=== PATIENT | female | born 1985 | race Caucasian/White ===

== ENCOUNTER → 2022-04-12 13:52 | Outpatient (CLI) | payer OTHER, SELFPAY ==
[2022-04-12 15:21] LABS: Triiodothryronine (T3) Uptake 29 % (23.5-40.5)
[2022-04-12 15:22] LABS: Free Thyroxine Index 2.6 ug/dL (5.93-13.13); T4 (Thyroxine) 8.9 ug/dl (5.53-11.0)
[2022-04-12 15:23] LABS: HCG,Quantitative 5504 mIU/ml (0-5.42)
[2022-04-12 15:36] LABS: Thyroid Stimulating Hormone 2.23 uIU/mL (0.465-4.68)
== END ==
PROVIDERS: Visit Provider Nurse Practitioner Obstetrics & Gynecology
DX: Z34.90 Encounter for supervision of normal pregnancy, unspecified, unspecified trimester (principal); E03.9 Hypothyroidism, unspecified
CPT/HCPCS: 36415; 84436; 84443; 84479; 84702

== ENCOUNTER → 2022-04-26 16:02 | Outpatient (CLI) | payer OTHER, SELFPAY ==
[2022-04-26 16:57] LABS: Basophils % 0.6 % (0.1-2.0); Eosinophils % 0.6 % (0.1-12.0); Hematocrit 40.7 % (37.0-47.0); Hemoglobin 13.6 g/dL (12.2-16.2); Lymphocytes # 1.6 K/mm3 (0.7-4.5); Lymphocytes % 21.8 % (10-50); Mean Corpuscular HGB Conc 33.5 g/dL (31.8-35.4); Mean Corpuscular Volume 83.4 fl (81-99); Monocytes # 0.3 K/mm3 (0.1-1.0); Monocytes % 4.6 % (1.7-9.3); Neutrophils # 5.3 K/mm3 (1.8-7.8); Neutrophils % 72.4 % (37.0-80.0); Platelet Count 357 K/mm3 (142-424); Red Blood Count 4.88 M/mm3 (4.20-5.40); Red Cell Distribution Width 14.5 % (11.5-17.5); White Blood Count 7.3 K/mm3 (4.8-10.8)
[2022-04-28 07:13] LABS: HIV Screen 4th Generation wRfx Non Reactive (Non Reactive); Hepatitis B Surface Antigen Negative (Negative); Hepatitis C Antibody <0.1 s/co ratio (0.0-0.9)
[2022-04-28 08:41] LABS: HSV 1 IgG, Type Spec <0.91 index (0.00-0.90); HSV 2 IgG, Type Spec <0.91 index (0.00-0.90); Rubella Antibodies, IgG 8.08 index (Immune >0.99)
[2022-04-28 09:27] LABS: Rapid Plasma Reagin Ab Titer Non Reactive (NonRea<1:1)
== END ==
PROVIDERS: PCP Internal Medicine; Visit Provider Nurse Practitioner Obstetrics & Gynecology
DX: Z34.90 Encounter for supervision of normal pregnancy, unspecified, unspecified trimester (principal)
CPT/HCPCS: 36415; 85025; 86592; 86695; 86703; 86762; 86790; 86850; 87340; 87380; G0432

== ENCOUNTER → 2022-05-03 16:02 | Outpatient (CLI) | payer OTHER, SELFPAY ==
--- NOTE | 2022-05-03 16:12 | US_ITS ---
PROCEDURE INFORMATION: Exam: US After First Trimester, Transabdominal Exam date and time: 05/03/2022 4:27 PM Age: 37 years old Clinical indication: Screening exam; Routine US, uterus; Additional info: For dates TECHNIQUE: Imaging protocol: Real-time transabdominal obstetrical ultrasound of the maternal pelvis and a second or third trimester with image documentation. COMPARISON: No relevant prior studies available. FINDINGS: UTERUS: The uterus is gravid with a single intrauterine gestational sac containing pole/yolk sac. Cardiac activity at 150 beats per minute. . COMPOSITE GESTATIONAL AGE/ POLE corresponds to 8 weeks and 1 day with estimated date of confinement of 12/12/2022. . ADNEXA/OVARIES: RIGHT ovary measures approximately 4.5 mL and LEFT ovary 7.0 mL. No adnexal mass or abnormality. No free fluid in the pelvis. IMPRESSION: Single VIABLE intrauterine gestation.
== END ==
PROVIDERS: PCP Internal Medicine; Visit Provider Nurse Practitioner Obstetrics & Gynecology
DX: Z34.90 Encounter for supervision of normal pregnancy, unspecified, unspecified trimester (principal)
CPT/HCPCS: 76805